=== PATIENT | female | born 1975 | race Caucasian/White ===

== ENCOUNTER 2016-12-28 20:57 | Emergency (ER) | payer MEDICAID ==
[2016-12-28 21:06] VITALS: BP 101/54
[2016-12-28] MEDS ORDERED: PENICILLIN V POTASSIUM 250 MG TABLET PO ONE (22:05)
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
[2016-12-28] MEDS ORDERED: KETOROLAC TROMETHAMINE 60 MG/2 ML VIAL IM ONE ×2 (22:08→22:11)
[2016-12-28] MEDS ORDERED: PENICILLIN V POTASSIUM 250 MG TABLET ONE (22:11)
--- OUTSIDE RECORDS SUMMARY | 2016-12-28 22:12 | XMS REPORT | Continuity of Care Document ---
:1975 Author Organization [facility] [place] [address] Care Team Providers Name Role Phone Unavailable Primary Care Provider Unavailable Source Comments This disclosure is being made pursuant to the Believe[employer]in program and maynot contain all information available regarding this patient.[facility] Active Allergies and Adverse Reactions Not on File Current Medications Be aware that medications may not be up to date as of this document. Alwaysverify current medications with the patient. Not on file Active Problems Not on file Social History Tobacco Use Types Packs/Day Years Used Date Never Assessed Plan of Care Health Maintenance Due Date Last Done Comments Retired-Pertussis Vaccine Adult 1996 Retired-Tetanus Vaccine Adult 1996 Pap Smear 1998 Retired-INFLUENZA VACCINE 04/27/2015 Results from Last 3 Months Not on file
== END 2016-12-28 22:18 | disposition home or self-care (01) ==
LOC: ER 20:57
DX: K04.7 Periapical abscess without sinus (principal); F17.210 Nicotine dependence, cigarettes, uncomplicated; F41.9 Anxiety disorder, unspecified; F32.9 Major depressive disorder, single episode, unspecified

== ENCOUNTER 2017-04-30 13:45 | Emergency (ER) | payer MEDICAID ==
[2017-04-30] MEDS ORDERED: KETOROLAC TROMETHAMINE 60 MG/2 ML VIAL IM ONE ×2 (14:08→14:12)
[2017-04-30] MEDS ORDERED: ORPHENADRINE CITRATE 30 MG/ML VIAL IM ONE (14:08)
[2017-04-30] MEDS ORDERED: ORPHENADRINE CITRATE 30 MG/ML VIAL ONE (14:12)
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
[2017-04-30 14:51] VITALS: BP 121/74
== END 2017-04-30 14:51 | disposition home or self-care (01) ==
LOC: ER 13:45
DX: M54.5 Low back pain (principal); G89.29 Other chronic pain; F17.200 Nicotine dependence, unspecified, uncomplicated